=== PATIENT | female | born 1985 | race Caucasian/White ===

== ENCOUNTER 2021-04-03 07:45 | Day surgery (SDC) | payer OTHER ==
[2021-04-03 08:34] VITALS: BMI 33.8
== END 2021-04-03 09:16 | disposition home or self-care (01) ==
LOC: CSHLD/OP 07:45
PROVIDERS: ATTEND Obstetrics & Gynecology
DX: O46.92 Antepartum hemorrhage, unspecified, second trimester (principal); O99.512 Diseases of the respiratory system complicating pregnancy, second trimester; J32.9 Chronic sinusitis, unspecified; O99.891 Other specified diseases and conditions complicating pregnancy; N88.8 Other specified noninflammatory disorders of cervix uteri; O99.612 Diseases of the digestive system complicating pregnancy, second trimester; K64.9 Unspecified hemorrhoids; Z3A.25 25 weeks gestation of pregnancy; Z79.2 Long term (current) use of antibiotics; Z88.0 Allergy status to penicillin
CPT/HCPCS: 99283

== ENCOUNTER 2021-07-06 07:58 | Outpatient (CLI) | payer OTHER ==
[2021-07-06 19:55] LABS: SARS-CoV-2 PCR by NAA Not Detected (NotDetected)
== END 2021-07-06 07:59 | disposition home or self-care (01) ==
LOC: CSHLAB 07:58
PROVIDERS: ATTEND Obstetrics & Gynecology
DX: Z20.822 Contact with and (suspected) exposure to COVID-19 (principal)
CPT/HCPCS: U0003; U0005

== ENCOUNTER 2021-07-10 18:38 | Inpatient (IN) | payer OTHER ==
[~2021-07-10 18:38] MED LIST: Bupivacaine 0.25% HCL 30 ML VIAL ONE
[2021-07-10 19:20] VITALS: BMI 38.4
[2021-07-10] MEDS ORDERED: Ibuprofen 800 MG TAB PO PRN (20:07)
[2021-07-10] MEDS ORDERED: hydrALAZINE 20 MG/ML VIAL SLOW IVP PRN (20:07)
[2021-07-10] MEDS ORDERED: Misoprostol 200 MCG TAB PR PRN (20:07)
[2021-07-10] MEDS ORDERED: Ondansetron PF 4 MG/2 ML Vial IVP PRN (20:07)
[2021-07-10] MEDS ORDERED: Carboprost 250 MCG/ML AMP IM PRN (20:07)
[2021-07-10] MEDS ORDERED: Methylergonovine 0.2 MG/ML VIAL IM PRN (20:07)
[2021-07-10] MEDS ORDERED: Docusate 100 MG CAP PO PRN (20:07)
[2021-07-10] MEDS ORDERED: Butorphanol Tartrate 1 MG/ML VIAL SLOW IVP PRN (20:07)
[2021-07-10] MEDS ORDERED: Promethazine HCl 25 MG/ML VIAL IM PRN (20:07)
[2021-07-10] MEDS ORDERED: Acetaminophen 500 MG TAB PO PRN (20:07)
[2021-07-10] MEDS ORDERED: HYDROcodone/Acetaminophen 5/325 mg Tablet PO PRN (20:07)
[2021-07-10] MEDS ORDERED: Lidocaine 1% (PF) 30 ML VIAL SC PRN (20:07)
[2021-07-10] MEDS ORDERED: Diphenoxylate HCl/Atropine Tablet PO PRN ×2 (20:07)
[2021-07-10] MEDS ORDERED: NS w/ Oxytocin 30 units 500 ML IVPB SCH (20:15)
[2021-07-10] MEDS ORDERED: NS w/ Oxytocin 30 units 500 ML IV SCH ×2 (20:15)
[2021-07-10] MEDS: Misoprostol 100 MCG TAB VAG SCH (20:43)
[2021-07-10 20:44] LABS: Hemoglobin 12.1 g/dL (12.0-15.5); Mean Corpuscular HGB CONC 33.7 g/dL (32.0-36.0); Mean Corpuscular Hemoglobin 30.1 pg (27.0-33.0); Mean Corpuscular Volume 89.3 fl (81.6-98.3); Mean Platelet Volume 10.5 fl (7.4-10.4); Platelet Count 182 10x3/uL (150-450); RBC Distribution Width 13.6 % (11.5-14.5); Red Blood Cell (RBC) Count 4.02 10x6/uL (3.90-5.03); White Blood Cell (WBC) Count 9.2 10x3/uL (3.5-10.5)
[2021-07-10] MEDS: CEFAZOLIN 1 GM in Sodium Chloride 0.9% 100 ML IVPB SCH (20:47)
[2021-07-10 21:15] LABS: Hep B Surf Ag Non-Reactive S/CO (NonReactive); Syphilis Antibody Nonreactive (Nonreactive); Syphilis Antibody Index 0.04 S/CO (<1.00 Non-Reactive)
[2021-07-10 21:16] LABS: HBSAg Index 0.16 S/CO (0-0.99)
[2021-07-11] MEDS: CEFAZOLIN 1 GM in Sodium Chloride 0.9% 100 ML IVPB SCH ×3 (06:26→21:29)
[2021-07-11] MEDS: Lactated Ringer's 1,000 ML IV SCH ×3 (08:22→20:39)
[2021-07-11] MEDS: Misoprostol 100 MCG TAB VAG SCH ×2 (09:30→20:39)
[2021-07-11] MEDS ORDERED: Misoprostol 100 MCG TAB PO PRN (09:45)
[2021-07-11] MEDS ORDERED: Fentanyl 2 mcg/Bup 0.1% Cadd 100 ML ONE (11:47)
[2021-07-11] MEDS ORDERED: Fentanyl 2 mcg/Bupivacaine 0.1% Cassette 100 ML EPIDURAL SCH (15:00)
[2021-07-11] MEDS ORDERED: diphenhydrAMINE 50 MG/ML VIAL IVP PRN (15:00)
[2021-07-11] MEDS ORDERED: Acetaminophen 325 MG TAB PO PRN (15:00)
[2021-07-11] MEDS ORDERED: Promethazine HCl 25 MG/ML VIAL IM PRN ×2 (15:00→23:25)
[2021-07-11] MEDS ORDERED: Naloxone HCl 0.4 mg/ml Vial IVP PRN ×2 (15:00)
[2021-07-11] MEDS ORDERED: Communication Order-Pharmacy FS SCH (15:00)
[2021-07-11] MEDS ORDERED: Lactated Ringer's 500 ML IV PRN (15:00)
[2021-07-11] MEDS ORDERED: Ondansetron PF 4 MG/2 ML Vial IVP PRN ×2 (15:00→23:25)
[2021-07-11] MEDS ORDERED: Hydrocerin (Eucerin) Cream 120 gm Jar TOP PRN (15:00)
[2021-07-11] MEDS ORDERED: ePHEDrine Sulfate 50 MG/10 ML VIAL SLOW IVP PRN (15:00)
[2021-07-11 20:48] LABS: pH (Cord, venous) 7.227 (7.250-7.350)
[2021-07-11] MEDS ORDERED: Benzocaine-Menthol 82.5 ML CAN TOP PRN (23:25)
[2021-07-11] MEDS ORDERED: Lanolin Ointment 7 GM TUBE TOP PRN (23:25)
[2021-07-11] MEDS ORDERED: Varicella virus, LIVE 0.5 ML VIAL SC ONE (23:25)
[2021-07-11] MEDS ORDERED: Preparation H Ointment 28 GM TUBE PR PRN (23:25)
[2021-07-11] MEDS ORDERED: Bisacodyl 10 MG SUPP PR PRN (23:25)
[2021-07-11] MEDS ORDERED: Methylergonovine 0.2 MG/ML VIAL IM PRN (23:25)
[2021-07-11] MEDS ORDERED: Milk Of Magnesia 30 ML UDCUP PO PRN (23:25)
[2021-07-11] MEDS ORDERED: hydrALAZINE 20 MG/ML VIAL SLOW IVP PRN (23:25)
[2021-07-11] MEDS ORDERED: Misoprostol 200 MCG TAB VAG PRN (23:25)
[2021-07-11] MEDS ORDERED: Measles/Mumps/Rubella 10 MCG/0.5 ML VIAL SC ONE (23:25)
[2021-07-11] MEDS ORDERED: NS w/ Oxytocin 30 units 500 ML IV SCH (23:25)
[2021-07-11] MEDS ORDERED: diphenhydrAMINE 25 MG CAP PO PRN (23:25)
[2021-07-11] MEDS ORDERED: HYDROcodone/Acetaminophen 5/325 mg Tablet PO PRN (23:25)
[2021-07-11] MEDS ORDERED: Boostrix 0.5 ML (Tdap) VIAL IM ONE (23:25)
[2021-07-11] MEDS ORDERED: Zolpidem Tartrate 5 MG TAB PO PRN (23:25)
[2021-07-12] MEDS: Docusate Calcium (SURFAK) 240 MG CAP PO SCH ×3 (03:41→21:43)
[2021-07-12] MEDS: Ibuprofen 800 MG TAB PO SCH ×4 (03:41→21:43)
[2021-07-12 06:40] LABS: Hemoglobin 10.9 g/dL (12.0-15.5); Mean Corpuscular HGB CONC 34.9 g/dL (32.0-36.0); Mean Corpuscular Hemoglobin 31.2 pg (27.0-33.0); Mean Corpuscular Volume 89.4 fl (81.6-98.3); Mean Platelet Volume 10.2 fl (7.4-10.4); Platelet Count 156 10x3/uL (150-450); RBC Distribution Width 13.5 % (11.5-14.5); Red Blood Cell (RBC) Count 3.49 10x6/uL (3.90-5.03); White Blood Cell (WBC) Count 19.5 10x3/uL (3.5-10.5)
[2021-07-12] MEDS: Prenatal Vitamin 1 TAB PO SCH (08:50)
[2021-07-12] MEDS: Ferrous Sulfate 325 MG TAB PO SCH ×2 (08:53→17:06)
[2021-07-13] MEDS: Ibuprofen 800 MG TAB PO SCH (05:24)
[2021-07-13] MEDS: Ferrous Sulfate 325 MG TAB PO SCH (07:36)
[2021-07-13 07:48] VITALS: BP 103/58; TEMP 97.9
[2021-07-13] MEDS: Docusate Calcium (SURFAK) 240 MG CAP PO SCH (09:29)
[2021-07-13] MEDS: Prenatal Vitamin 1 TAB PO SCH (09:29)
== END 2021-07-13 11:30 | disposition home or self-care (01) | DRG 807 ==
LOC: CSHLD 18:38 → CSHPP 07-11 23:12
PROVIDERS: ADMIT Obstetrics & Gynecology; ATTEND Obstetrics & Gynecology
PROC: 10D07Z6 Extraction of Products of Conception, Vacuum, Via Natural or Artificial Opening (ICD-10-PCS; principal; 2021-07-11)
PROC: 0W8NXZZ Division of Female Perineum, External Approach (ICD-10-PCS; 2021-07-11)
PROC: 0KQM0ZZ Repair Perineum Muscle, Open Approach (ICD-10-PCS; 2021-07-11)
PROC: 3E0P7VZ Introduction of Hormone into Female Reproductive, Via Natural or Artificial Opening (ICD-10-PCS; 2021-07-11)
DX: O99.824 Streptococcus B carrier state complicating childbirth (principal); Z37.0 Single live birth; Z3A.39 39 weeks gestation of pregnancy; O66.0 Obstructed labor due to shoulder dystocia; O70.1 Second degree perineal laceration during delivery
CPT/HCPCS: 36415; 51701; 51702; 82805; 85027; 86780; 86850; 86900; 86901; 87340; 90715; J0690; J2210; J2405; J2590; J3490; J7120; S0020

== ENCOUNTER 2022-11-25 14:37 | Outpatient (CLI) | payer BC | END 2022-11-25 14:38 | disposition home or self-care (01) | LOC: CSHULT 14:37 | PROVIDERS: ATTEND Nurse Practitioner Family | DX: E04.9 Nontoxic goiter, unspecified (principal) | CPT/HCPCS: 76536 ==